=== PATIENT | male | born 1995 ===

== ENCOUNTER 2017-07-31 15:59 | Emergency (ER) | payer MEDICAID, OTHER ==
[2017-07-31 16:11] VITALS: RESP 18; BMI 32.8
--- NOTE | 2017-07-31 17:03 | C.PDOC ---
History Of Present Illness 21 y/o M c PMHx p/w abdominal pain x 2 days. Pain is L sided, somewhat diffuse, constant. With diarrhea, green in color. NB vomiting x 2 episodes. Loss of appetite. Also notes a headache. Denies dyspnea, fever, chills, chest pain, cough, congestion. Pepto Bismol did help. Carrying heavy objects makes pain worse. Time Seen by Provider: 07/31/17 16:20 Chief Complaint (Nursing): Abdominal Pain Past Medical History Vital Signs: Last Vital Signs Temp 98.6 F 07/31/17 18:23 Pulse 69 07/31/17 18:23 Resp 18 07/31/17 18:23 BP 105/70 07/31/17 18:23 Pulse Ox 100 07/31/17 18:23 Family History: States: No Known Family Hx - Social History Hx Tobacco Use: No Hx Alcohol Use: No Hx Substance Use: No - Immunization History Hx Tetanus Toxoid Vaccination: No Hx Influenza Vaccination: No Hx Pneumococcal Vaccination: No Review Of Systems Except As Marked, All Systems Reviewed And Found Negative. Constitutional: Negative for: Fever Cardiovascular: Negative for: Chest Pain Physical Exam - Physical Exam Additional Physical Exam Comments: Constitutional: No acute distress. Head: Normocephalic. Atraumatic. Eyes: PERRL. ENT: Moist mucous membranes. Neck: Supple. Cardiovascular: Regular rate. Radial pulse 2+ bilaterally. Chest: No tenderness. Respiratory: Clear to auscultation bilaterally. GI: Soft. Nondistended. Diffuse, mild tenderness without guarding or rebound. Back: No CVA tenderness. Musculoskeletal: No tenderness or swelling of extremities. Skin: No rash. Neurologic: Alert, no focal deficit. ED Course And Treatment - Laboratory Results Result Diagrams: 07/31/17 17:23 07/31/17 17:23 O2 Sat by Pulse Oximetry: 97 Medical Decision Making Medical Decision Making: Differential: gastritis, pancreatitis, hepatitis, gastroenteritis On re-examination, patient with normal vitals, feels better, and would like to go home. Instructed to f/u with PMD and to return to ED for worsening pain, fever, dyspnea, or vomiting. Abdomen remains soft on exam. Disposition - Disposition Disposition: HOME/ ROUTINE Disposition Time: 18:55 Condition: STABLE Prescriptions: Acetaminophen [Tylenol 325mg tab] 2 tab PO Q4H #30 tab Ondansetron ODT [Zofran ODT] 4 mg PO Q8 #12 odt Instructions: Gastroenteritis (ED) Forms: [facility] ([facility]) - Clinical Impression Clinical Impression: Abdominal pain
[2017-07-31] MEDS ORDERED: Sodium Chloride 0.9% 1,000 ML IV STA (17:05)
[2017-07-31] MEDS ORDERED: Alum-Mag Hydrox-Simethicone Susp (30 mL) PO STA (17:06)
[2017-07-31] MEDS ORDERED: Aluminum Hydroxide/Magnesium Hydroxide Susp (30 mL) ONE (17:26)
[2017-07-31 17:30] LABS: BASO % 0.5 % (0.0-2.0); EOS # 0.1 K/uL (0.0-0.7); EOS % 1.1 % (0.0-4.0); HEMOGLOBIN 15.1 g/dL (12.0-18.0); LYMPH % 18.5 % (20.0-40.0); MEAN CELL VOLUME 82.4 fL (80.0-94.0); MEAN PLATELET VOLUME 8.9 fL (7.2-11.7); MONO # 0.4 K/uL (0.0-0.8); MONO % 6.8 % (0.0-10.0); NEUT # 3.9 K/uL (1.8-7.0); NEUT % 73.1 % (50.0-75.0); RBC 5.41 Mil/uL (4.40-5.90); RED CELL DISTRIBUTION WIDTH 13.7 % (11.5-14.5); WHITE BLOOD COUNT 5.4 K/uL (4.8-10.8)
[2017-07-31 17:45] LABS: ALBUMIN 4.3 g/dL (3.5-5.0); ALT/SGPT 40 U/L (21-72); AST/SGOT 33 U/L (17-59); BLOOD UREA NITROGEN 13 mg/dL (9-20); CALCIUM 8.4 mg/dl (8.6-10.4); GFR AFRICAN-AMERICAN > 60; GFR NON-AFRICAN AMERICAN > 60; LIPASE 51 U/L (23-300)
[2017-07-31 18:00] LABS: ALB/GLOB RATIO 1.1 (1.0-2.1)
[2017-07-31 18:25] VITALS: BP 105/70; PULSE 69; TEMP 98.6
[2017-07-31 18:56] VITALS: O2SAT 97
== END 2017-07-31 19:01 | disposition home or self-care (01) ==
LOC: C.ER 15:59
DX: R10.9 Unspecified abdominal pain (principal)
CPT/HCPCS: 80053; 83690; 85025; 96361; 96374; 96375; 99285; J2405; J7040